=== PATIENT | male | born 1970 | race Caucasian/White ===

== ENCOUNTER 2018-09-21 08:08 | Emergency (ER) | payer OTHER ==
[~2018-09-21] VITALS: Ht 182.9 cm; Wt 95.5 kg
[~2018-09-21 08:08] MED LIST: BUPR10TASR PO; IBUP-1022 PO
[2018-09-21] MEDS ORDERED: MELO15TA28 PO (08:13)
[2018-09-21] MEDS ORDERED: FLUO20CA8 PO (08:13)
[2018-09-21] MEDS: LIDOCAINE 2% MDV 20 ML VIAL SC ONE (09:30)
[2018-09-21 10:22] VITALS: BP 139/91
[2018-09-21] MEDS ORDERED: BACT800T5 PO (10:40)
== END 2018-09-21 11:03 | disposition home or self-care (01) ==
LOC: M ED 08:08
DX: S61.211A Laceration without foreign body of left index finger without damage to nail, initial encounter (principal); W26.8XXA Contact with other sharp object(s), not elsewhere classified, initial encounter; Y92.59 Other trade areas as the place of occurrence of the external cause; Y99.0 Civilian activity done for income or pay; F17.200 Nicotine dependence, unspecified, uncomplicated; Z79.899 Other long term (current) drug therapy

== ENCOUNTER 2019-05-10 11:21 | Day surgery (SDC) | payer OTHER ==
[~2019-05-10] VITALS: Ht 182.9 cm; Wt 95.2 kg
[~2019-05-10 11:21] MED LIST changes: +BACT800T5 PO; +CRES10TA PO; +D 202000 PO; +FLUO20CA8 PO; +LOPE2TAB12 PO; +MELO15TA28 PO; +NS 1,000 ML IV ONE
--- NOTE | 2019-05-10 13:27 | ROOR ---
Patient Name: Jaime Ch Procedure Date: 05/10/2019 12:50 PM Date of : 1970 Age: 48 Room: [facility] Gender: Male Note Status: Finalized Procedure: Colonoscopy Indications: Screening for colorectal malignant neoplasm Providers: Fran Murdock MD Referring MD: Aryan Somers Md Requesting Provider: Medicines: Monitored Anesthesia Care Complications: No immediate complications. Procedure: Pre-Anesthesia Assessment: - Prior to the procedure, a History and Physical was performed, and patient medications and allergies were reviewed. The patient is competent. The risks and benefits of the procedure and the sedation options and risks were discussed with the patient. All questions were answered and informed consent was obtained. Patient identification and proposed procedure were verified by the physician, the nurse and the anesthesiologist in the endoscopy suite. Mental Status Examination: alert and oriented. Airway Examination: normal oropharyngeal airway and neck mobility. Respiratory Examination: clear to auscultation. CV Examination: normal. Prophylactic Antibiotics: The patient does not require prophylactic antibiotics. Prior Anticoagulants: The patient has taken no previous anticoagulant or antiplatelet agents. ASA Grade Assessment: II - A patient with mild systemic disease. After reviewing the risks and benefits, the patient was deemed in satisfactory condition to undergo the procedure. The anesthesia plan was to use monitored anesthesia care (MAC). Immediately prior to administration of medications, the patient was re-assessed for adequacy to receive sedatives. The heart rate, respiratory rate, oxygen saturations, blood pressure, adequacy of pulmonary ventilation, and response to care were monitored throughout the procedure. The physical status of the patient was re-assessed after the procedure. The Colonoscope was introduced through the anus and advanced to the cecum, identified by appendiceal orifice and ileocecal valve. The colonoscopy was performed without difficulty. The patient tolerated the procedure well. The quality of the bowel preparation was good. Findings: Hemorrhoids were found on perianal exam. A 10 mm polyp was found in the sigmoid colon. The polyp was pedunculated. The polyp was removed with a hot snare. Resection and retrieval were complete. Estimated blood loss: none. Three flat polyps were found in the recto-sigmoid colon. The polyps were diminutive in size. These polyps were removed with a cold biopsy forceps. Resection and retrieval were complete. Estimated blood loss was minimal. The retroflexed view of the distal rectum and anal verge was normal and showed no anal or rectal abnormalities. Impression: - Hemorrhoids found on perianal exam. - One 10 mm polyp in the sigmoid colon, removed with a hot snare. Resected and retrieved. - Three diminutive polyps at the recto-sigmoid colon, removed with a cold biopsy forceps. Resected and retrieved. - The distal rectum and anal verge are normal on retroflexion view. Recommendation: - Discharge patient to home (ambulatory). - Repeat colonoscopy in 5 years for surveillance. Fran Murdock MD Fran Murdock MD 05/10/2019 1:27:28 PM Electronically signed by Fran Murdock MD Number of Addenda: 0 Note Initiated On: 05/10/2019 12:50 PM Estimated Blood Loss: Estimated blood loss was minimal.
[2019-05-10 13:50] VITALS: BP 143/98
== END 2019-05-10 13:59 | disposition home or self-care (01) ==
LOC: M OPP 11:21
PROVIDERS: ATTEND Surgery
DX: Z12.11 Encounter for screening for malignant neoplasm of colon (principal); K64.9 Unspecified hemorrhoids; D12.5 Benign neoplasm of sigmoid colon; D12.7 Benign neoplasm of rectosigmoid junction; F17.210 Nicotine dependence, cigarettes, uncomplicated; Z79.899 Other long term (current) drug therapy; Z88.0 Allergy status to penicillin

== ENCOUNTER → 2020-01-09 | Outpatient (CLI) | payer OTHER ==
[~2020-01-09] MED LIST changes: +FLUO20CA20 PO; -FLUO20CA8 PO; -NS 1,000 ML IV ONE
--- NOTE | 2020-03-04 08:35 | SLEEPCENT ---
DATE: 01/09/2020 ORDERED BY: Geronimo Somers Nocturnal polysomnography was performed for evaluation of sleep physiology. There was concern for the obstructive sleep apnea syndrome given a history of snoring and irregular breathing in sleep. Seven hours and three minutes of data were reviewed. There were 357 minutes of sleep identified. Sleep latency was prolonged at 33.5 minutes. REM latency was prolonged at 137 minutes. Sleep architecture was fair with three REM cycles. Mild fragmentation was appreciated. Overall sleep efficiency is 85.5%. The electrocardiogram showed sinus rhythm with premature ventricular contractions (PVCs), average heart rate 50 beats per minutes, rate range 40-60. EEG showed reasonably normal waveforms for wake and sleep, no focal events were identified. There was only one obstructive respiratory event of ten seconds in duration or greater for an apnea hypopnea index well within normal limits at 0.2. Snoring was, however, noted over much of the study and respiratory related arousals, when arousals from snoring were included, occurred 1.7 times per hour. There was some mild limb activity, but arousals were few and there were no oxygen desaturations below 90%. IMPRESSION: Normal nocturnal polysomnography with snoring. ckd /htskm edited: 04/17/2020 [id number] stepan DANG
== END ==
LOC: M SLEEP 20:00
PROVIDERS: ATTEND Internal Medicine
DX: G47.39 Other sleep apnea (principal)

== ENCOUNTER 2022-09-04 08:54 | Emergency (ER) | payer OTHER ==
[~2022-09-04] VITALS: Ht 182.9 cm; Wt 99.8 kg
[~2022-09-04 08:54] MED LIST changes: +FLUO-96 PO; -FLUO20CA20 PO
[2022-09-04 10:01] LABS: HEMATOCRIT 47.8 % (42.0-52.0); HEMOGLOBIN 16.3 g/dl (13.5-17.5); MEAN CORPUSCULAR HEMOGLOBIN 32.1 pg (27.0-33.0); MEAN CORPUSCULAR HGB CONC 34.1 g/dl (32.0-36.5); MEAN CORPUSCULAR VOLUME 94.1 fl (80.0-96.0); PLATELET COUNT, AUTOMATED 225 10^3/uL (150-450); RED BLOOD COUNT 5.08 10^6/uL (4.30-6.10); WHITE BLOOD COUNT 9.3 10^3/uL (4.0-10.0)
[2022-09-04 10:25] LABS: BLOOD UREA NITROGEN 12 MG/DL (9-23); CALCIUM LEVEL 9.1 MG/DL (8.5-10.1); CARBON DIOXIDE LEVEL 28 MMOL/L (20-31); CHLORIDE LEVEL 103 MMOL/L (98-107); CREATININE FOR GFR 1.03 MG/DL (0.70-1.30); GLOMERULAR FILTRATION RATE > 60.0 (>56); GLUCOSE, FASTING 97 MG/DL (60-100); POTASSIUM SERUM 4.7 MMOL/L (3.5-5.1); SODIUM LEVEL 137 MMOL/L (136-145)
[2022-09-04] MEDS ORDERED: NS 1,000 ML IV ONE (11:25)
[2022-09-04] MEDS ORDERED: ONDANSETRON 4MG 2ML VIAL IV ONE (11:30)
[2022-09-04] MEDS ORDERED: MORPHINE 4 MG/ML 1ML VIAL IV ONE (11:30)
[2022-09-04] MEDS ORDERED: ISOVUE-370 76% 100ML VIAL As Ordered ONE (11:39)
[2022-09-04] MEDS ORDERED: VANCOMYCIN HCL 2,000 MG in D5W 500 ML IV ONE (13:30)
[2022-09-04] MEDS ORDERED: VANCOMYCIN HCL 1,000 MG, VIAL MATE ADAPTER 1 EACH in NS 250 ML IV ONE ×6 (14:00)
[2022-09-04] MEDS ORDERED: VITA100093 PO (14:50)
[2022-09-04] MEDS ORDERED: DULO1CAP4 PO (14:50)
[2022-09-04] MEDS ORDERED: HOME MED LIST COMPLETE! XX SCH (14:55)
[2022-09-04 15:13] LABS: RSV AMPLIFICATION NEGATIVE (NEGATIVE)
[2022-09-04] MEDS ORDERED: DALBAVANCIN 1,500 MG in D5W 250 ML IV ONE ×2 (15:15→18:35)
[2022-09-04 19:12] VITALS: BP 150/86
== END 2022-09-04 20:06 | disposition home or self-care (01) ==
LOC: M ED 08:54
DX: L03.311 Cellulitis of abdominal wall (principal); F17.200 Nicotine dependence, unspecified, uncomplicated; F10.10 Alcohol abuse, uncomplicated; F41.9 Anxiety disorder, unspecified; F32.A Depression, unspecified; Z88.0 Allergy status to penicillin; Z79.899 Other long term (current) drug therapy
CPT/HCPCS: 74177; 80048; 81001; 83605; 85027; 85652; 86140; 87040; 87631; 96365; 96375; 99284; J0875; J2270; J2405; Q9967

== ENCOUNTER 2023-06-04 05:58 | Day surgery (SDC) | payer OTHER ==
[~2023-06-04] VITALS: Ht 182.9 cm; Wt 99.8 kg
[~2023-06-04 05:58] MED LIST changes: +DULO1CAP4 PO; +DULO1CAP5 PO; +FLUO40CA PO; +VITA100093 PO
[2023-06-04] MEDS ORDERED: LR 1,000 ML IV SCH ×2 (06:45→08:20)
[2023-06-04] MEDS ORDERED: LIDOCAINE 2% 100MG/5ML SDV (FOR ANES.) As Ordered ONE (07:02)
[2023-06-04] MEDS ORDERED: ACETAMINOPHEN 1000MG 100ML IV BAG As Ordered ONE (07:02)
[2023-06-04] MEDS ORDERED: propofoL 200 MG/20 ML VIAL As Ordered ONE (07:02)
[2023-06-04] MEDS ORDERED: KETOROLAC 60MG 2ML VIAL As Ordered ONE (07:02)
[2023-06-04] MEDS ORDERED: ONDANSETRON 4MG 2ML VIAL As Ordered ONE (07:03)
[2023-06-04] MEDS ORDERED: fentaNYL 100 MCG/2 ML INJECTION As Ordered ONE (07:05)
[2023-06-04] MEDS ORDERED: MIDAZOLAM INJ 2MG/2ML VIAL As Ordered ONE (07:05)
[2023-06-04] MEDS ORDERED: HYDROMORPHONE HCL 0.5 MG/ 0.5 ML SYRINGE IV PRN (08:20)
[2023-06-04] MEDS ORDERED: fentaNYL 100 MCG/2 ML INJECTION IV PRN (08:20)
[2023-06-04] MEDS ORDERED: oxyCODONE 5MG TAB PO PRN (08:20)
[2023-06-04] MEDS ORDERED: ONDANSETRON 4MG 2ML VIAL IV PRN (08:20)
[2023-06-04 09:20] VITALS: BP 149/95; TEMP 97.1; O2SAT 97
== END 2023-06-04 09:20 | disposition home or self-care (01) ==
LOC: M SDC 05:58
PROVIDERS: ATTEND Orthopaedic Surgery Hand Surgery
DX: G56.01 Carpal tunnel syndrome, right upper limb (principal); G47.30 Sleep apnea, unspecified; F17.210 Nicotine dependence, cigarettes, uncomplicated; Z79.899 Other long term (current) drug therapy; Z88.0 Allergy status to penicillin
CPT/HCPCS: 29848; J0131; J0665; J1100; J1885; J2250; J2405; J3010

== ENCOUNTER 2023-10-04 10:02 | Emergency (ER) | payer OTHER ==
[~2023-10-04] VITALS: Ht 182.9 cm; Wt 100.0 kg
[2023-10-04 11:56] LABS: BASO % 0.3 % (0.0-1.0); EOS # 0.1 10^3/uL (0.0-0.5); EOS % 0.5 % (0.0-3.0); HEMATOCRIT 46.7 % (42.0-52.0); HEMOGLOBIN 16.1 g/dl (13.5-17.5); LYMPH % 21.1 % (24.0-44.0); MEAN CORPUSCULAR HEMOGLOBIN 34.1 pg (27.0-33.0); MEAN CORPUSCULAR HGB CONC 34.5 g/dl (32.0-36.5); MEAN CORPUSCULAR VOLUME 98.9 fl (80.0-96.0); MONO # 0.8 10^3/uL (0.0-0.8); MONO % 8.5 % (2.0-8.0); NEUTROPHILS # 6.6 10^3/uL (1.5-8.5); NEUTROPHILS % 69.3 % (36.0-66.0); PLATELET COUNT, AUTOMATED 217 10^3/uL (150-450); RED BLOOD COUNT 4.72 10^6/uL (4.30-6.10); WHITE BLOOD COUNT 9.6 10^3/uL (4.0-10.0)
[2023-10-04 12:11] LABS: ERYTHROCYTE SEDIMENTATION RATE 9 mm/hr (0-20)
[2023-10-04] MEDS: LIDOCAINE 1% MDV 20ML VIAL SC ONE (15:05)
[2023-10-04] MEDS: DALBAVANCIN 1,500 MG in D5W 250 ML IV ONE (15:30)
[2023-10-04 17:59] VITALS: BP 174/104; TEMP 98.6; O2SAT 100
== END 2023-10-04 18:00 | disposition home or self-care (01) ==
LOC: M ED 10:02
DX: L03.314 Cellulitis of groin (principal); F32.A Depression, unspecified; F41.9 Anxiety disorder, unspecified; K58.9 Irritable bowel syndrome, unspecified; F17.200 Nicotine dependence, unspecified, uncomplicated; F43.10 Post-traumatic stress disorder, unspecified; Z88.0 Allergy status to penicillin; Z79.899 Other long term (current) drug therapy; Z79.1 Long term (current) use of non-steroidal anti-inflammatories (NSAID)
CPT/HCPCS: 80047; 85025; 85652; 86140; 87040; 96365; 96366; 99284; J0875

== ENCOUNTER 2023-12-18 16:24 | Emergency (ER) | payer OTHER ==
[~2023-12-18] VITALS: Ht 182.9 cm; Wt 98.7 kg
[2023-12-18 17:00] LABS: BASO % 0.2 % (0.0-1.0); EOS # 0.1 10^3/uL (0.0-0.5); HEMATOCRIT 45.4 % (42.0-52.0); HEMOGLOBIN 15.7 g/dl (13.5-17.5); LYMPH # 1.6 10^3/uL (1.5-5.0); LYMPH % 12.6 % (24.0-44.0); MEAN CORPUSCULAR HEMOGLOBIN 34.2 pg (27.0-33.0); MEAN CORPUSCULAR HGB CONC 34.6 g/dl (32.0-36.5); MEAN CORPUSCULAR VOLUME 98.9 fl (80.0-96.0); MONO # 1.3 10^3/uL (0.0-0.8); MONO % 10.4 % (2.0-8.0); NEUTROPHILS # 9.4 10^3/uL (1.5-8.5); NEUTROPHILS % 75.6 % (36.0-66.0); PLATELET COUNT, AUTOMATED 226 10^3/uL (150-450); RED BLOOD COUNT 4.59 10^6/uL (4.30-6.10); WHITE BLOOD COUNT 12.5 10^3/uL (4.0-10.0)
[2023-12-18 17:32] LABS: CK-MB VALUE MASS 1.3 NG/ML (<3.6)
[2023-12-18 17:34] LABS: BLOOD UREA NITROGEN 11 MG/DL (9-23); CALCIUM LEVEL 9.3 MG/DL (8.5-10.1); CARBON DIOXIDE LEVEL 29 MMOL/L (20-31); CHLORIDE LEVEL 98 MMOL/L (98-107); CPK CREATINE PHOSPHOKINASE 133 U/L (46-171); CREATININE FOR GFR 1.05 MG/DL (0.70-1.30); GLOMERULAR FILTRATION RATE > 60.0 (>56); GLUCOSE, FASTING 125 MG/DL (60-100); MB/CK RELATIVE INDEX 0.97 (< OR =4); POTASSIUM SERUM 4.5 MMOL/L (3.5-5.1); SODIUM LEVEL 132 MMOL/L (136-145)
[2023-12-18] MEDS ORDERED: ISOVUE-370 76% 100ML VIAL As Ordered ONE (18:10)
[2023-12-18 18:32] LABS: INR 1.08; PARTIAL THROMBOPLASTIN TIME 33.6 SECONDS (24.8-34.2); PROTHROMBIN TIME 13.7 SECONDS (12.5-14.5)
[2023-12-18 18:32] LABS: CK-MB VALUE MASS 2.4 NG/ML (<3.6)
[2023-12-18 18:37] LABS: MB/CK RELATIVE INDEX 1.72 (< OR =4)
[2023-12-18] MEDS ORDERED: HEPARIN SOD (PORCINE) 5000UNITS/ML 1ML VIAL/SYRINGE IV PRN (18:40)
[2023-12-18] MEDS: ASPIRIN 81MG CHEW TABLET PO ONE (19:00)
[2023-12-18] MEDS: HEPARIN SOD (PORCINE) 5000UNITS/ML 1ML VIAL/SYRINGE IV ONE (19:02)
[2023-12-18] MEDS: HEPARIN DRIP 25,000 UNITS in IV 1 EA IV SCH (19:03)
[2023-12-18 19:45] VITALS: BP 108/74
[2023-12-18] MEDS: NITROGLYCERIN 2% OINT 1 GM *U/D* PKT TOP ONE (19:45)
[2023-12-18 22:00] VITALS: O2SAT 96
[2023-12-18 22:09] VITALS: BP 123/87
[2023-12-18 22:12] VITALS: TEMP 97.3
== END 2023-12-18 22:16 | disposition short-term general hospital (02) ==
LOC: M ED 16:24
DX: I21.4 Non-ST elevation (NSTEMI) myocardial infarction (principal); R00.0 Tachycardia, unspecified; F17.200 Nicotine dependence, unspecified, uncomplicated; K58.9 Irritable bowel syndrome, unspecified; F10.10 Alcohol abuse, uncomplicated; F41.9 Anxiety disorder, unspecified; Z88.0 Allergy status to penicillin; Z79.899 Other long term (current) drug therapy; Z79.1 Long term (current) use of non-steroidal anti-inflammatories (NSAID)
CPT/HCPCS: 71045; 71275; 80048; 82550; 82553; 84484; 85025; 85610; 85730; 87486; 87581; 87633; 87798; 93005; 93041; 94760; 96365; 96366; 99285; Q9967

== ENCOUNTER 2024-01-21 06:40 | Emergency (ER) | payer OTHER ==
[~2024-01-21] VITALS: Ht 182.9 cm; Wt 100.1 kg
[2024-01-21] MEDS ORDERED: COLC0.6T47 PO (08:54)
[2024-01-21] MEDS ORDERED: PANT40TA29 PO (08:54)
[2024-01-21] MEDS ORDERED: EZET10TA21 PO (08:54)
[2024-01-21] MEDS ORDERED: LISI5TAB11 PO (08:54)
[2024-01-21] MEDS: NS 1,000 ML IV ONE (09:30)
[2024-01-21] MEDS ORDERED: ISOVUE-370 76% 100ML VIAL As Ordered ONE (10:31)
[2024-01-21 10:32] LABS: BASO # 0.1 10^3/uL (0.0-0.2); BASO % 0.5 % (0.0-1.0); EOS # 0.2 10^3/uL (0.0-0.5); EOS % 1.9 % (0.0-3.0); HEMATOCRIT 45.2 % (42.0-52.0); HEMOGLOBIN 15.8 g/dl (13.5-17.5); LYMPH # 1.9 10^3/uL (1.5-5.0); LYMPH % 19.1 % (24.0-44.0); MEAN CORPUSCULAR VOLUME 97.2 fl (80.0-96.0); MONO # 0.6 10^3/uL (0.0-0.8); MONO % 6.3 % (2.0-8.0); NEUTROPHILS # 7.3 10^3/uL (1.5-8.5); NEUTROPHILS % 71.9 % (36.0-66.0); PLATELET COUNT, AUTOMATED 182 10^3/uL (150-450); RED BLOOD COUNT 4.65 10^6/uL (4.30-6.10); WHITE BLOOD COUNT 10.1 10^3/uL (4.0-10.0)
[2024-01-21 10:38] LABS: ERYTHROCYTE SEDIMENTATION RATE 8 mm/hr (0-20)
[2024-01-21] MEDS: DALBAVANCIN 1,500 MG in D5W 250 ML IV ONE (13:32)
[2024-01-21 14:29] VITALS: BP 180/107; TEMP 96.9; O2SAT 99
== END 2024-01-21 14:34 | disposition home or self-care (01) ==
LOC: M ED 06:40
DX: H60.11 Cellulitis of right external ear (principal); I10 Essential (primary) hypertension; E78.5 Hyperlipidemia, unspecified; K58.9 Irritable bowel syndrome, unspecified; G47.33 Obstructive sleep apnea (adult) (pediatric); Z88.0 Allergy status to penicillin; F17.200 Nicotine dependence, unspecified, uncomplicated
CPT/HCPCS: 70491; 80047; 85025; 85652; 86140; 87040; 96365; 99284; J0875; Q9967